=== PATIENT | male | born 1970 | race Native Hawaiian/Other Pacific Islander ===

== ENCOUNTER 2020-08-16 11:07 | Emergency (ER) | payer OTHER ==
[~2020-08-16] VITALS: Ht 185.4 cm; Wt 97.5 kg
[2020-08-16 11:35] VITALS: BP 111/80; TEMP 98.7
== END 2020-08-16 12:24 | disposition home or self-care (01) ==
LOC: ED 11:07
DX: M65.331 Trigger finger, right middle finger (principal)
CPT/HCPCS: 96372; 99283; J1885

== ENCOUNTER 2020-08-17 10:18 | Emergency (ER) | payer OTHER | END 2020-08-17 12:04 | disposition home or self-care (01) | LOC: ED 10:18 | DX: M65.331 Trigger finger, right middle finger (principal) | CPT/HCPCS: 96365; 96374; 99281; 99282; 99284 ==